=== PATIENT | female | born 1965 | race Caucasian/White ===

== ENCOUNTER 2018-07-08 13:11 | Inpatient (IN) | payer OTHER ==
[~2018-07-08] VITALS: Ht 162.6 cm; Wt 99.8 kg
[~2018-07-08 13:11] MED LIST: BENZONATATE100 MG PO; CYCLOBENZAPRINE10 M1 PO; KETOROLAC TROME10 M1 PO; PERCOCET 5-3251 EACH PO; ROBITUSSIN W/CO10 ML PO; VENTOLIN HFA18 GM INH; ZITHROMAX Z-PA250 M1 PO
[2018-07-08 14:08] LABS: ABSOLUTE BASOPHIL COUNT 0 /CUMM (0.0-0.2); ABSOLUTE EOSINOPHIL COUNT 0.3 /CUMM (0.0-0.7); ABSOLUTE GRANULOCYTE CT 5.9 /CUMM (1.4-6.5); ABSOLUTE LYMPH COUNT 2.7 /CUMM (1.2-3.4); ABSOLUTE MONOCYTE COUNT 0.6 /CUMM (0.10-0.60); BASOPHIL % 0.3 % (0.0-2.0); EOSINOPHIL % 2.7 % (0-5); GRANULOCYTE % 61.7 % (42.2-75.2); HEMATOCRIT 40.5 % (37-47); MEAN CORPUSCULAR HGB 28.2 PG (27.0-31.0); MEAN CORPUSCULAR HGB CONC 33.3 G/DL (33.0-37.0); MEAN CORPUSCULAR VOLUME 84.7 FL (81.0-99.0); MEAN PLATELET VOLUME 7.8 FL (7.4-10.4); PLATELET COUNT 295 /CUMM (130-400); RBC DISTRIBUTION WIDTH 13.7 % (11.5-14.5); RED BLOOD CELL CT 4.78 /CUMM (4.20-5.40); WHITE BLOOD CELL COUNT 9.5 /CUMM (4.8-10.8)
--- NOTE | 2018-07-08 14:19 | ED PSYCHIATRIC COMPLAINT ---
See Addendum History of Present Illness General Chief Complaint: Psychiatric Related Complaint Stated Complaint: SIB DR COVARRUBIAS, +SI, ANXIETY Source: patient, old records, friend Exam Limitations: no limitations Vital Signs & Intake/Output Vital Signs & Intake/Output Vital Signs Date Time Temp Pulse Resp B/P B/P Pulse O2 O2 Flow FiO2 Mean Ox Delivery Rate 07/08 2255 97.6 52 20 111/65 96 Room Air 07/08 1832 98.4 74 20 124/73 96 Room Air 07/08 1611 98.0 79 20 120/81 97 Room Air 07/08 1315 97.4 94 15 113/76 98 Room Air Room Air ED Intake and Output 07/09 0000 07/08 1200 Intake Total Output Total Balance Patient 230 lb Weight Weight Reported by Patient Measurement Method Allergies Coded Allergies: nitrofurantoin (Intermediate, HIVES 07/08/18) esomeprazole (From NEXIUM) (BEEFY TONGUE 07/08/18) omeprazole (From PRILOSEC) (ADVERSE REACTION 07/08/18) ramipril (COUGH 07/08/18) Reconcile Medications Albuterol Sulfate (Ventolin Hfa) 0.09 MG/Actuation CONG 1 INH INH DAILY ASTHMA (Reported) Aspirin (Aspirin*) 81 MG TAB.CHEW 1 TAB PO Q AFTERNOON HEART HEALTH (Reported ) Azithromycin (Zithromax Z-Jorje) 250 MG CAP 1 DP PO AD BRONCHTIIS 2 the first day followed by 1 for days 2-5 Benzonatate 100 MG SGL 1-2 CAP PO Q4 ASTHMA (Reported) Cholecalciferol (Vitamin D3) (Vitamin D) 2,000 UNIT CAPSULE 1 CAP PO DAILY SUPPLEMENT (Reported) Clonazepam 1 MG TABLET 1 TAB PO QPMP SLEEP (Reported) Cyclobenzaprine HCl 10 MG TABLET 1 TAB PO BID PRN MUSCLE RELAXOR DO NOT OPERATE MOTOR VEHICLES WITH THE MEDICATION Duloxetine HCl 60 MG CAPSULE. 1 CAP PO BID DEPRESSION (Reported) Famotidine 40 MG TABLET 0.5 TAB PO DAILY STOMACH (Reported) Hydroxyzine Pamoate 50 MG CAPSULE 2 CAP PO QHS SLEEP (Reported) Ketorolac Tromethamine 10 MG TABLET 1 TAB PO TID PRN PAIN RECEIVED IM IN ER Levothyroxine Sodium 137 MCG TABLET 1 TAB PO DAILY HYPOTHYROIDISM (Reported) Linaclotide (Linzess) 72 MCG CAPSULE 1 CAP PO DAILY BOWELS (Reported) Losartan Potassium 50 MG TABLET 1 TAB PO DAILY HYPERTENSION (Reported) Metoclopramide HCl (Reglan) 10 MG TABLET 1 TAB PO PRN PRN HEADACHE (Reported) 30 minutes before meals and bedtime Multivitamin (One Daily Multivitamin) 1 EACH TABLET 1 TAB PO DAILY SUPPLEMENT (Reported) Naproxen 500 MG TABLET 1 TAB PO PRN PRN HEADACHE (Reported) Nystatin 100,000 UNIT/GRAM POWDER 1 TOP PRN PRN RASH (Reported) Oxycodone HCl/Acetaminophen (Percocet 5-325 MG Tablet) 1 EACH TABLET 1-2 TAB PO Q6P PRN severe pain Oxycodone HCl/Acetaminophen (Percocet 5-325 MG Tablet) 5 MG-325 MG TABLET 1 TAB PO BID PRN PAIN DO NOT OPERATE MOTOR VEHICLES WITH MEDICATION Progesterone,Micronized (Progesterone) 100 MG CAPSULE 1 CAP PO QPM HORMONE REPLACEMENT (Reported) Robitussin AC (Guaifenesin-Codeine Syrup) 10 ML UDC 5 ML PO Q6 COUGH Rosuvastatin Calcium (Crestor) 5 MG TABLET 1 TAB PO Q AFTERNOON CHOLESTEROL ( Reported) Sumatriptan Succinate 100 MG TABLET 1 TAB PO AD HEADACHES (Reported) may repeat in 2 hours; do not exceed 200 mg in 24 hours Trazodone HCl 100 MG TABLET 2-3 TAB PO QPM SLEEP (Reported) Triage Note: PT SENT TO ED BY DR. COVARRUBIAS FOR +SI THOUGHTS AND INCREASED DEPRESSION RECENTLY. DENIES HI OR AUDITORY HALLUCINATIONS. PLAN TO DRIVE CAR INTO CONCRETE WALL. PT CALM AND COOPERATIVE. Triage Nurses Notes Reviewed? yes Onset: 3 months Duration: week(s):, constant, continues in ED, getting worse Timing: recent history Severity: severe Associated Symptoms: anxiety, impaired concentration, insomnia, suicidal ideation LMP (ages 10-50): post menopausal : No Patient currently breastfeeds: No HPI: 3 months prior to admission patient has become more anxious depressed and fearful of leaving home difficulty concentrating working insomnia anhedonia and suicidal ideation by driving her car into a wall. She also reports being fearful of leaving the home and being unable to work. She denies fever chills nausea vomiting diarrhea abdominal pain chest pain shortness breath headache dysuria rash bleeding homicidal ideation hallucination. (Pauline DIAZ,Alejandro) Past History Travel History Traveled to [place] past 21 day No Medical History Any Pertinent Medical History? see below for history Neurological: migraine EENT: NONE Cardiovascular: hypertension Respiratory: NONE Gastrointestinal: GALLBLADDER Hepatic: NONE Renal: NONE Musculoskeletal: NONE Psychiatric: DEPRESSION, ANXIETY Endocrine: HYPOTHYROID Isolation History: Standard Surgical History Surgical History: cholecystectomy, hernia repair-ventral Psychosocial History What is your primary language Bulgarian Tobacco Use: Current Daily Use Daily Tobacco Use Amount/Type: => 5 Cigarettes daily ETOH Use: denies use Illicit Drug Use: marijuana Family History Hx Contributory? No (Alejandro Carpenter MD) Review of Systems Review of Systems Constitutional: Reports: no symptoms. EENTM: Reports: no symptoms. Respiratory: Reports: no symptoms. Cardiovascular: Reports: no symptoms. GI: Reports: no symptoms. Genitourinary: Reports: no symptoms. Musculoskeletal: Reports: no symptoms. Skin: Reports: no symptoms. Neurological/Psychological: Reports: see HPI, anxiety, confusion, depressed, emotional problems. Hematologic/Endocrine: Reports: no symptoms. Immunologic/Allergic: Reports: no symptoms. All Other Systems: Reviewed and Negative (Alejandro Carpenter MD) Physical Exam Physical Exam General Appearance: well developed/nourished, alert, awake, anxious, severe distress, obese Head: atraumatic, normal appearance Eyes: Bilateral: normal appearance, PERRL, EOMI. Ears, Nose, Throat: normal pharynx, normal ENT inspection, hearing grossly normal, moist mucus membranes Neck: normal inspection, supple, full range of motion, no midline tenderness Respiratory: normal breath sounds, chest non-tender, no respiratory distress, quiet respiration, lungs clear Cardiovascular: regular rate/rhythm, normal peripheral pulses, norml femoral pulses equa Gastrointestinal: normal bowel sounds, soft, non-tender, no organomegaly Extremities: normal range of motion, no ligament instability Neurological/Psychiatric: no motor/sensory deficits, awake, agitated, alert, anxious, top waddy II-XII nml as tested, oriented x 3 Appearance/Memory/Insight: disheveled, impaired insight Behavoir/Eye Contact/Speech: cooperative, normal speech Thoughts/Hallucinations: no apparent hallucination Skin: intact, normal color, warm/dry SAD PERSONS SAD PERSONS Response Value Age <19 or >45 years? yes 1 Depression/Hopelessness? yes 2 Previous Attempts/Psych Care yes 1 Rational Thinking Loss? yes 2 Single//? yes 1 Social Support? has support 0 Stated Future Intent? yes 2 Total 9 SAD PERSONS Done? yes (Pauline DIAZ,Alejandro) Progress Differential Diagnosis: drug intoxication, drug overdose, drug withdrawal, electrolyte abnormality, hypoglycemia Plan of Care: Orders Procedure Date/time Status Regular Diet 07/08 D Active Continuous Observation Monitor 07/08 1730 Active ED CRISIS PSYCH CONSULT 07/08 1355 Active Continuous Observation Monitor 07/08 1330 Active URINE DRUG SCREEN FOR ER ONLY 07/08 133 Complete ETHANOL 07/08 133 Complete COMPREHENSIVE METABOLIC PANEL 07/08 133 Complete CBC WITHOUT DIFFERENTIAL 07/08 133 Complete Current Medications Sig/Mirna Start time Last Medication Dose Stop Time Status Admin Losartan Potassium 50 MG DAILY 07/09 900 UNVr (Cozaar) Multivitamins 1 TAB DAILY 07/09 900 UNVr Therapeutic (Theragran-M Vitamins Tabs) Levothyroxine Sodium 0.137 MG DAILY AC 07/09 07 AC (Synthroid) Clonazepam 1 MG AT BEDTIME PRN 07/08 2100 AC 07/08 (Klonopin 1MG Tab) 07/15 Duloxetine HCl 60 MG BID 07/08 2100 UNVr 07/08 (Cymbalta) 2016 Hydroxyzine HCl 100 MG QPM 07/08 2100 UNVr 07/08 (Atarax) 2015 Progesterone 100 MG AT BEDTIME 07/08 2100 AC (Prometrium) Trazodone HCl See Dose QPM 07/08 2100 UNVr 07/08 (Desyrel) Insts (1) 2015 Atorvastatin Calcium 20 MG 1700 07/08 1700 UNVr 07/08 (Lipitor) 1748 Non-Formulary 0 SEE ADMIN CRITERIA 07/08 1630 UNVr Medication (NON FORMULARY) Sumatriptan Succinate 100 MG DAILY NEEDED PRN 07/08 1630 AC (Imitrex Tab) Cyclobenzaprine HCl 10 MG BID PRN 07/08 1615 UNVr (Flexeril 10MG Tab) Dose Instructions: (1)Trazodone HCl (Desyrel): 2-3 TAB Laboratory Tests 07/08/18 1357: Serum Alcohol < 10.0 07/08/18 1357: Anion Gap 9, Estimated GFR > 60, BUN/Creatinine Ratio 15.6, Glucose 82, Calcium 9.1, Total Bilirubin 0.2, AST 28, ALT 45, Alkaline Phosphatase 70, Total Protein 7.3, Albumin 4.6, Globulin 2.7, Albumin/Globulin Ratio 1.7, CBC w Diff NO MAN DIFF REQ, RBC 4.78, MCV 84.7, MCH 28.2, MCHC 33.3, RDW 13.7, MPV 7.8, Gran % 61.7, Lymphocytes % 28.9, Monocytes % 6.4, Eosinophils % 2.7, Basophils % 0.3, Absolute Granulocytes 5.9, Absolute Lymphocytes 2.7, Absolute Monocytes 0.6, Absolute Eosinophils 0.3, Absolute Basophils 0, Urine Opiates Screen < 100, Methadone Screen 72, Barbiturate Screen < 60, Ur Phencyclidine Scrn < 6.00, Amphetamines Screen 127, U Benzodiazepines Scrn < 85, Urine Cocaine Screen < 50, Urine Cannabis Screen > 80.00 H Hand-Off Endorsed To: Yobani DIAZ,Anival Villanueva Endorsed Time: 1899 Pending: other (bed search) (Alejandro Carpenter MD) Departure Departure Disposition: STILL A PATIENT Condition: Stable Clinical Impression Primary Impression: Major depression Referrals: Philippe DIAZ,Brittany Marx (PCP/Family) Departure Forms: Customer Survey General Discharge Information (Alejandro Carpenter MD) Departure Comments pt to be signed out to dr. strong, 07.09.18, 7am. crises dispo pending. (Yobani DIAZ,Anival Villanueva)
[2018-07-08] MEDS ORDERED: LEVOTHYROXINE137 MCG PO (14:44)
[2018-07-08] MEDS ORDERED: LOSARTAN POTASS50 M1 PO (14:45)
[2018-07-08] MEDS ORDERED: DULOXETINE HCL60 MG PO (14:46)
[2018-07-08] MEDS ORDERED: PROGESTERONE100 M2 PO (14:47)
[2018-07-08] MEDS ORDERED: CRESTOR5 M1 PO (14:49)
[2018-07-08] MEDS ORDERED: TRAZODONE HCL100 M1 PO (14:50)
[2018-07-08] MEDS ORDERED: NYSTATIN15 G2 TOP (14:51)
[2018-07-08] MEDS ORDERED: HYDROXYZINE PAM50 M1 PO (14:51)
[2018-07-08] MEDS ORDERED: CLONAZEPAM1 M2 PO (14:52)
[2018-07-08] MEDS ORDERED: FAMOTIDINE40 M1 PO (14:53)
[2018-07-08] MEDS ORDERED: NAPROXEN500 M2 PO (14:54)
[2018-07-08] MEDS ORDERED: SUMATRIPTAN SU100 M1 PO (14:55)
[2018-07-08] MEDS ORDERED: REGLAN10 M1 PO (14:57)
[2018-07-08] MEDS ORDERED: ASPIRIN81 M4 PO (14:58)
[2018-07-08] MEDS ORDERED: ONE DAILY MULT1 EAC2 PO (15:01)
[2018-07-08] MEDS ORDERED: LINZESS72 MCG PO (15:01)
[2018-07-08] MEDS ORDERED: VITAMIN D2000 UNIT PO (15:01)
--- NOTE | 2018-07-08 15:25 | ED PSYCH CRISIS CONSULTATION ---
Crisis Consult Basic Assessment Date of Consult: 07/08/18 Responsible Person/Accompanied By: accompanied by her friends Insurance Authorization: Insurance #1: Insurance name: [employer] Phone number: Policy number: [id number] Group number: [id number] Authorization number: ED Provider: Patient's ED Provider: Alejandro Carpenter MD Primary Care Physician: Patient's PCP: Philippe DIAZ,Brittany Marx PCP's Phone Number: Current Psychiatrist: [facility] Chief Complaint: Psychiatric Related Complaint Patient's Quote: "I keep thinking about driving my car into concrete wall" Present Illness: Pt is a 53yo female who self presents to the ED requesting help for Anxiety, Depression, and SI with plan to drive herself into a concrete wall. Pt is a accompanied by her close friends Celine and Selvin. Celine is her roommate. Both are supportive and comfort pt as she explains what she has been going through as she is tearful. Pt reports that she has many medical issues and believes that hormones may be a big part of why she is feeling so depressed and anxious. Pt says that she has only part of a pituitary. Pt also says she felt really bad about herself when her Dr told her that she is a canidate for bariatric surgery. 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 Lately she hsa been agoraphobic and isolative. She has been afraid to go to work. she has not been able to attend family functions such as her grandson's birthday libertarian. "I went, but I could not stay. I left with out saying bye to anyone and that is not like me. I feel like I am loosing control. I don't trust people lately and I am usually a very loving person. I'm just so emotional." Pt reports that she has a similar situation about 10 years ,where her anxiety and Depression go so bad that she could nit function and she was psychiatrically Hospitalized at [facility]. Since then, she has been in out pt tx at [facility] in [place] for 10 years. She currently works with Luis Altamirano. Pt reports that he has increased her trazodone to 300mg because she has not been able to sleep. Pt requested that the [employer] be called to collaborate. Message left for the [employer] . Pt admits that less than a year ago she started smoking Marijuana before bed a few times a week to help with anxiety. UDS is positive for cannabis. Pt would like inpt psych tx as she expresses she is worried she may act on her SI. Case reviewed with Dr. Duarte of psychiatry who also recommends inpt psych tx. He recommended that pt discontinue the Reglan because it can cause SI. Dr. Carpenter and Nurse were informed of this. There are currently no inpt psych beds available in so pt will stay in the ED overnight. Pt agreeable. C-SSRS: Risk Factors: Suicidal thoughts, Hopelessness, Helplessness, Major Depressive Episode, Substance Use, Medical problem, Method of suicide available, unable to maintain safety, sexual abuse? (pt unsure), Protective Factors: Supportive Social Network Patient's Address: [address] [place] [address] Other Phone Number: Who Do You Live With? Other (see notes) (roommate) Family/Informants Interviewed: Roommate Mickie Sheets Allergies - Coded Allergies: nitrofurantoin (Intermediate, HIVES 07/08/18) esomeprazole (From NEXIUM) (BEEFY TONGUE 07/08/18) omeprazole (From PRILOSEC) (ADVERSE REACTION 07/08/18) ramipril (COUGH 07/08/18) Current Medications - Scheduled Medications Albuterol Sulfate (Ventolin Hfa) 0.09 MG/Actuation CONG 1 INH INH DAILY ASTHMA #18 (Reported) Entered as Reported by Laurie Jung on 08/17/14 1535 Aspirin (Aspirin*) 81 MG TAB.CHEW 1 TAB PO Q AFTERNOON HEART HEALTH (Reported ) Entered as Reported by Florence Recio on 07/08/18 1458 Azithromycin (Zithromax Z-Jorje) 250 MG CAP 1 DP PO AD BRONCHTIIS #1 DP Prescribed by Anny Webster on 08/17/14 Benzonatate 100 MG SGL 1-2 CAP PO Q4 ASTHMA #28 (Reported) Entered as Reported by Laurie Jung on 08/17/14 1535 Cholecalciferol (Vitamin D3) (Vitamin D) 2,000 UNIT CAPSULE 1 CAP PO DAILY SUPPLEMENT (Reported) Entered as Reported by Florence Recio on 07/08/18 1501 Clonazepam 1 MG TABLET 1 TAB PO QPMP SLEEP #30 (Reported) Entered as Reported by Florence Recio on 07/08/18 1452 Duloxetine HCl 60 MG CAPSULE.DR 1 CAP PO BID DEPRESSION #60 (Reported) Entered as Reported by Florence Recio on 07/08/18 1446 Famotidine 40 MG TABLET 0.5 TAB PO DAILY STOMACH #60 (Reported) Entered as Reported by Florence Recio on 07/08/18 1453 Hydroxyzine Pamoate 50 MG CAPSULE 2 CAP PO QHS SLEEP #60 (Reported) Entered as Reported by Florence Recio on 07/08/18 1451 Levothyroxine Sodium 137 MCG TABLET 1 TAB PO DAILY HYPOTHYROIDISM #90 ( Reported) Entered as Reported by Florence Recio on 07/08/18 1444 Linaclotide (Linzess) 72 MCG CAPSULE 1 CAP PO DAILY BOWELS (Reported) Entered as Reported by Florence Recio on 07/08/18 1501 Losartan Potassium 50 MG TABLET 1 TAB PO DAILY HYPERTENSION #30 (Reported) Entered as Reported by Florence Recio on 07/08/18 1445 Multivitamin (One Daily Multivitamin) 1 EACH TABLET 1 TAB PO DAILY SUPPLEMENT (Reported) Entered as Reported by Florence Recio on 07/08/18 1501 Progesterone,Micronized (Progesterone) 100 MG CAPSULE 1 CAP PO QPM HORMONE REPLACEMENT #90 (Reported) Entered as Reported by Florence Recio on 07/08/18 1447 Robitussin AC (Guaifenesin-Codeine Syrup) 10 ML UDC 5 ML PO Q6 COUGH #120 ML Prescribed by Anny Webster on 08/17/14 Rosuvastatin Calcium (Crestor) 5 MG TABLET 1 TAB PO Q AFTERNOON CHOLESTEROL # 90 (Reported) Entered as Reported by Florence Recio on 07/08/18 1449 Sumatriptan Succinate 100 MG TABLET 1 TAB PO AD HEADACHES #9 (Reported) Entered as Reported by Florence Recio on 07/08/18 1455 Trazodone HCl 100 MG TABLET 2-3 TAB PO QPM SLEEP #90 (Reported) Entered as Reported by Florence Recio on 07/08/18 1450 Scheduled PRN Medications Cyclobenzaprine HCl 10 MG TABLET 1 TAB PO BID PRN MUSCLE RELAXOR #14 TAB Prescribed by Adan Balderas on 07/25/17 Ketorolac Tromethamine 10 MG TABLET 1 TAB PO TID PRN PAIN #15 TAB Prescribed by Adan Balderas on 07/25/17 Metoclopramide HCl (Reglan) 10 MG TABLET 1 TAB PO PRN PRN HEADACHE #15 ( Reported) Entered as Reported by Florence Recio on 07/08/18 1457 Naproxen 500 MG TABLET 1 TAB PO PRN PRN HEADACHE #9 (Reported) Entered as Reported by Florence Recio on 07/08/18 1454 Nystatin 100,000 UNIT/GRAM POWDER 1 TOP PRN PRN RASH #60 (Reported) Entered as Reported by Florence Recio on 07/08/18 1451 Oxycodone HCl/Acetaminophen (Percocet 5-325 MG Tablet) 1 EACH TABLET 1-2 TAB PO Q6P PRN severe pain #2 TAB Prescribed by Alejandro Carpenter MD on 03/29/16 Oxycodone HCl/Acetaminophen (Percocet 5-325 MG Tablet) 5 MG-325 MG TABLET 1 TAB PO BID PRN PAIN #8 TAB Prescribed by Adan Balderas on 07/25/17 Laboratory Results: Laboratory Tests 07/08/18 1357: Serum Alcohol < 10.0 07/08/18 1357: Anion Gap 9, Estimated GFR > 60, BUN/Creatinine Ratio 15.6, Glucose 82, Calcium 9.1, Total Bilirubin 0.2, AST 28, ALT 45, Alkaline Phosphatase 70, Total Protein 7.3, Albumin 4.6, Globulin 2.7, Albumin/Globulin Ratio 1.7, CBC w Diff NO MAN DIFF REQ, RBC 4.78, MCV 84.7, MCH 28.2, MCHC 33.3, RDW 13.7, MPV 7.8, Gran % 61.7, Lymphocytes % 28.9, Monocytes % 6.4, Eosinophils % 2.7, Basophils % 0.3, Absolute Granulocytes 5.9, Absolute Lymphocytes 2.7, Absolute Monocytes 0.6, Absolute Eosinophils 0.3, Absolute Basophils 0, Urine Opiates Screen < 100, Methadone Screen 72, Barbiturate Screen < 60, Ur Phencyclidine Scrn < 6.00, Amphetamines Screen 127, U Benzodiazepines Scrn < 85, Urine Cocaine Screen < 50, Urine Cannabis Screen > 80.00 H Past History Past Medical History Neurological: migraine EENT: NONE Cardiovascular: hypertension Respiratory: NONE Gastrointestinal: GALLBLADDER Hepatic: NONE Renal: NONE Musculoskeletal: NONE Psychiatric: DEPRESSION, ANXIETY Endocrine: HYPOTHYROID Past Surgical History Surgical History: cholecystectomy, hernia repair-ventral Psychosocial History Strengths/Capabilities: motivated for tx, supportive friends, 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 Able to articulate needs Physical Limitations (Interventions): none reported Psychiatric Treatment History Psych Treatment Psychiatric Treatment Yes Inpatient Treatment Yes Outpatient Treatment Yes Location of Treatment [facility] Reason for Treatment Depression, Anxiety Dates of Treatment past 10 years to present Response to Treatment variable Diagnosis by History: Depression, Anxiety Substance Use/Abuse History Drug Use/Abuse Substances Used/Abused Yes Substance Used/Abused Marijuana First Use lass than 1 year ago Last Used this week How much used/taken unknown How often few times a week For how long less than 1 year Route of use smoke Substance Abuse Treatment Substance Abuse Treatment Past Substance Abuse TX No Inpatient Treatment No Outpatient Treatment No Current Mental Status Mental Status Orientation: Person, Place, Situation Affect: Anxious, Depressed, Hopeless, Sad Speech: WNL Neuro-vegetative: Anhedonia, Concentration Poor, Energy Decreased, Helpless, Loss of Interest, Sleep Disturbance Appearance Appearance- Dress/Hygiene: well groomed, tearful Behaviors Thought Process: WNL Thought Content: WNL Memory: WNL Insight: WNL SI/HI Risk Assessment Past Suicidal Ideation/Attempts No Current Suicidal Ideation/Att Yes Past Homicidal Ideation/Att: No Current Homicidal Ideation/Attempts No Degree of Intent: Plan Danger To: Self Risk Factors: high anxiety/distress, SA/MH hospitalized, substance abuse Lethality Ratin PTSD Checklist PTSD Done? patient declined ED Management Sitter: Yes Restraints: No DSM5/PS Stressors/Medical Prob Diagnosis' (DSM 5, Stressors, Medical): F33.2 MDD rec severe w/o psychosis F41.1 Gen Anxiety F12.20 Cannabis use d/o Current GAF: 25 Departure Disposition Psych Medical Clearance Date: 07/08/18 Medically Cleared at: 1445 Time Started: 1445 Time Ended: 1545 Psychiatrist Consulted: Anival Duarte MD Date Disposition Established: 07/08/18 Time Disposition Established: 2901 Plan for Disposition - Modality: Bed Search Facility: To Be Determined Rationale for Disposition: safety and stabilization Type of IP Admission: Voluntary Referrals Philippe DIAZ,Brittany Marx (PCP/Family)
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
--- NOTE | 2018-07-09 13:17 | CT SCAN REPORT ---
EXAMINATION: CT ABDOMEN AND PELVIS WITHOUT CONTRAST CLINICAL INFORMATION: Right lower quadrant pain. Rule out evidence of appendicitis. COMPARISON: None. TECHNIQUE: Multidetector volumetric imaging was performed from the superior aspect of the liver through the pubic symphysis. Sagittal and coronal reformatted images were obtained on the technologist workstation. DLP: 897.13 mGy-cm. FINDINGS: LUNG BASES: The visualized lung bases are unremarkable. LIVER, GALLBLADDER, AND BILIARY TREE: The liver is normal in size and shape, and diffusely lower in attenuation compared to the spleen, consistent with hepatic steatosis. Patchy areas of relative hyper density is seen in a geographic distribution along the falciform ligament and gallbladder fossa, consistent with areas of focal fatty sparing. No focal hepatic lesion on noncontrast imaging. No biliary ductal dilatation is present. The gallbladder is surgically absent with several nighat seen in the gallbladder fossa. No focal fluid collection seen. PANCREAS: Mild fatty infiltration in the pancreatic head. SPLEEN: Unremarkable. Small 0.7 cm accessory splenule seen along the anterior inferior margin of the spleen. ADRENAL GLANDS: Unremarkable on noncontrast imaging. KIDNEYS AND URETERS: The kidneys are normal in size, shape, and attenuation. No hydronephrosis, hydroureter, or calculi seen. No perinephric stranding. Several calcifications are seen in the cul-de-sac, posterior to the bladder and around the uterus/vagina, consistent with multiple phleboliths. BLADDER: Suboptimally assessed due to underdistention, but grossly unremarkable. PELVIC VISCERA: Unremarkable. GASTROINTESTINAL TRACT: The small and large bowel are decompressed and unremarkable. Incidentally noted is fatty infiltration of the ileocecal valve. The appendix is normal. No focal inflammatory process in the right lower quadrant. ABDOMINAL WALL: Diastases of the rectus abdominis muscles is seen with moderate size midline umbilical hernia. No evidence of acute inflammatory changes. The hernia sac measures approximately 4.4 x 2.4 x 4.5 cm and contains omental fat only. LYMPH NODES, VASCULAR: Unremarkable. OSSEOUS STRUCTURES: The patient is status post anterior lumbar spine fusion at L4-5 and L5-S1 with partial bony fusion also noted. Mild degenerative disc disease is seen at L1-2 with disc space narrowing, vertebral endplate spurring, minimal cystic changes and minimal grade 1 retrolisthesis of L1 on L2. Minimal spurring also seen in the lower thoracic spine. Osteopenia noted. IMPRESSION: 1. The appendix is normal. No evidence of acute appendicitis. 2. Hepatic steatosis with patchy areas of fatty sparing. 3. Status post cholecystectomy with no evidence of biliary dilatation. 4. Mild fatty infiltration of the pancreatic head. 5. Moderate fat-containing umbilical hernia.
[2018-07-09 16:35] VITALS: BP 130/77
[2018-07-09 19:52] VITALS: BP 118/75
[2018-07-10 07:44] VITALS: BP 128/67
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
--- NOTE | 2018-07-10 13:12 | History & Physical ---
General Information and HPI MD Statement: I have seen and personally examined NAOMI DUPONT and documented this H&P. The patient is a 53 year old F who presented with a patient stated chief complaint of "I keep thinking about driving my car into concrete wall". Source of Information: patient, friend Exam Limitations: unable to give history History of Present Illness: 53-year-old white female was sent to the emergency department by Dr. Chamorro for positive suicidal idea thoughts and increased depression recently, had a plan to drive her car into a concrete wall. The symptoms have been present for at least 3 months with increased depression decreased concentration and insomnia anhedonia and suicidal ideation for all those reasons she is admitted for evaluation and treatment. Allergies/Medications Allergies: Coded Allergies: nitrofurantoin (Intermediate, HIVES 07/08/18) esomeprazole (From NEXIUM) (BEEFY TONGUE 07/08/18) omeprazole (From PRILOSEC) (ADVERSE REACTION 07/08/18) ramipril (COUGH 07/08/18) Home Med list Albuterol Sulfate (Ventolin Hfa) 0.09 MG/Actuation CONG 1 INH INH DAILY ASTHMA (Reported) Aspirin (Aspirin*) 81 MG TAB.CHEW 1 TAB PO Q AFTERNOON HEART HEALTH (Reported ) Azithromycin (Zithromax Z-Jorje) 250 MG CAP 1 DP PO AD BRONCHTIIS 2 the first day followed by 1 for days 2-5 Benzonatate 100 MG SGL 1-2 CAP PO Q4 ASTHMA (Reported) Cholecalciferol (Vitamin D3) (Vitamin D) 2,000 UNIT CAPSULE 1 CAP PO DAILY SUPPLEMENT (Reported) Clonazepam 1 MG TABLET 1 TAB PO QPMP SLEEP (Reported) Cyclobenzaprine HCl 10 MG TABLET 1 TAB PO BID PRN MUSCLE RELAXOR DO NOT OPERATE MOTOR VEHICLES WITH THE MEDICATION Duloxetine HCl 60 MG CAPSULE.DR 1 CAP PO BID DEPRESSION (Reported) Famotidine 40 MG TABLET 0.5 TAB PO DAILY STOMACH (Reported) Hydroxyzine Pamoate 50 MG CAPSULE 2 CAP PO QHS SLEEP (Reported) Ketorolac Tromethamine 10 MG TABLET 1 TAB PO TID PRN PAIN RECEIVED IM IN ER Levothyroxine Sodium 137 MCG TABLET 1 TAB PO DAILY HYPOTHYROIDISM (Reported) Linaclotide (Linzess) 72 MCG CAPSULE 1 CAP PO DAILY BOWELS (Reported) Losartan Potassium 50 MG TABLET 1 TAB PO DAILY HYPERTENSION (Reported) Metoclopramide HCl (Reglan) 10 MG TABLET 1 TAB PO PRN PRN HEADACHE (Reported) 30 minutes before meals and bedtime Multivitamin (One Daily Multivitamin) 1 EACH TABLET 1 TAB PO DAILY SUPPLEMENT (Reported) Naproxen 500 MG TABLET 1 TAB PO PRN PRN HEADACHE (Reported) Nystatin 100,000 UNIT/GRAM POWDER 1 TOP PRN PRN RASH (Reported) Oxycodone HCl/Acetaminophen (Percocet 5-325 MG Tablet) 1 EACH TABLET 1-2 TAB PO Q6P PRN severe pain Oxycodone HCl/Acetaminophen (Percocet 5-325 MG Tablet) 5 MG-325 MG TABLET 1 TAB PO BID PRN PAIN DO NOT OPERATE MOTOR VEHICLES WITH MEDICATION Progesterone,Micronized (Progesterone) 100 MG CAPSULE 1 CAP PO QPM HORMONE REPLACEMENT (Reported) Robitussin AC (Guaifenesin-Codeine Syrup) 10 ML UDC 5 ML PO Q6 COUGH Rosuvastatin Calcium (Crestor) 5 MG TABLET 1 TAB PO Q AFTERNOON CHOLESTEROL ( Reported) Sumatriptan Succinate 100 MG TABLET 1 TAB PO AD HEADACHES (Reported) may repeat in 2 hours; do not exceed 200 mg in 24 hours Trazodone HCl 100 MG TABLET 2-3 TAB PO QPM SLEEP (Reported) Compliance With Home Meds: UNKNOWN Past History Travel History Traveled to [place] past 21 day No Medical History Neurological: migraine EENT: NONE Cardiovascular: hypertension Respiratory: NONE, CHRONIC BRONCHITIS Gastrointestinal: GALLBLADDER ABD HERNIA REPAIR (UMBILI Hepatic: NONE, FATTY LIVER Renal: NONE Musculoskeletal: NONE, BACK SURGERY LISTED Psychiatric: DEPRESSION, ANXIETY Endocrine: HYPOTHYROID Cancer(s): basal cell carcinoma 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 Exam & Diagnostic Data Last 24 Hrs of Vital Signs/I&O Vital Signs Date Time Temp Pulse Resp B/P B/P Pulse O2 O2 Flow FiO2 Mean Ox Delivery Rate 07/10 0801 87 128/67 07/10 0744 98.0 87 128/67 07/09 1952 98.6 66 118/75 07/09 1635 98.8 71 130/77 07/09 1547 98.0 62 18 112/62 95 Room Air Intake & Output 07/10 1600 07/10 0800 07/10 0000 Intake Total Output Total Balance Patient 220 lb Weight Physical Exam General Appearance Alert, Oriented X3, Cooperative, No Acute Distress Skin No Rashes, No Breakdown HEENT Atraumatic, PERRLA, EOMI Neck Supple, No JVD, No thryomegaly, +2 Carotid Pulse wo Bruit Lymphatic Axillary nl, Cervical nl Cardiovascular Regular Rate, No Murmurs Lungs Clear to Auscultation, Normal Air Movement Abdomen Soft, No Tenderness, No Hepatospenomegaly Neurological Exam Findings: Normal Gait, Normal Speech, Strength at 5/5 X4 Ext, Normal Tone, Sensation Intact, Cranial Nerves 3-12 NL, Reflexes 2+ Cranial Nerves II through XII: intact. Extremities No Cyanosis, No Edema, Normal Pulses Vascular Normal Pulses, Pulses Symmetrical Last 24 Hrs of Labs/Renaldo: Laboratory Tests 07/08/18 1357: Serum Alcohol < 10.0 07/08/18 135: Anion Gap 9, Estimated GFR > 60, BUN/Creatinine Ratio 15.6, Glucose 82, Calcium 9.1, Total Bilirubin 0.2, AST 28, ALT 45, Alkaline Phosphatase 70, Total Protein 7.3, Albumin 4.6, Globulin 2.7, Albumin/Globulin Ratio 1.7, CBC w Diff NO MAN DIFF REQ, RBC 4.78, MCV 84.7, MCH 28.2, MCHC 33.3, RDW 13.7, MPV 7.8, Gran % 61.7, Lymphocytes % 28.9, Monocytes % 6.4, Eosinophils % 2.7, Basophils % 0.3, Absolute Granulocytes 5.9, Absolute Lymphocytes 2.7, Absolute Monocytes 0.6, Absolute Eosinophils 0.3, Absolute Basophils 0, Urine Opiates Screen < 100, Methadone Screen 72, Barbiturate Screen < 60, Ur Phencyclidine Scrn < 6.00, Amphetamines Screen 127, U Benzodiazepines Scrn < 85, Urine Cocaine Screen < 50, Urine Cannabis Screen > 80.00 H Assessment/Plan As Ranked By This Provider Problem List: 1. Major depression Miscellaneous Miscellaneous Documentation Attending Case Discussed With: Naomi Velazquez MD Primary Care Physician: Brittany Paez MD, I. Patient sees these Specialists psych. Level of Patient Care: [facility] Consults Needed: Consulting Specialty: Psychiatry Consulting Physician: dr. Duarte Reason for Consult: SI depression. Attending MD Review Statement Attending Statement Attending MD Statement: examined this patient
--- NOTE | 2018-07-10 16:53 | SOCIAL WORKER PROG NOTE PSYCH ---
Social Work Progress Note Progress Note This chief underwriter met with patient. She reported that her life had become "overwhelming. I wanted to check out and I didn't want to so I came here." She discussed feeling very angry, sad, confused and "I can't process a thought." She identified seeing multiple specialists due to not feeling well medically as her primary trigger. Patient stated that she had been seeing Dr. Pringle, who referred her to Luis Altamirano APRN to add therapy to the medication management. She stated that Luis Altamirano was "pushing [place]" and she did not feel that there was enough focus on therapy. Patient reported MJ use, "almost daily", 1-2 hits and at times up to a joint. She identified this use to manage her anxiety, however, no longer finds it helpful. She reported "rare" alcohol use and was unable to provide a pattern/ amount of use. Patient reported SI - "I'm having thoughts of escaping," though denied any plan. She denied HI/hallucinations. She is agreeable to an IOP referral. She is also agreeable toa family meeting with friends and would like to discuss this with them before this chief underwriter schedules the meeting.
[2018-07-10 19:33] VITALS: BP 124/78
[2018-07-11 07:40] VITALS: BP 116/77
--- NOTE | 2018-07-11 11:57 | [facility] PROGRESS NOTE PSYCH ---
Psych (Inpt) Progress Note Progress Note The patient's progress, treatment plan, and aftercare plans were discussed in the treatment team meeting this morning. Team members included: LCSWs, RNs, OTR/ L, Activities Therapist, and Psychiatrist. Vital Signs Date Time Temp Pulse B/P 07/11 0803 65 116/77 07/11 0740 97.1 65 Mental status examination: The patient describes depressive symptoms, significant anxiety symptoms including agoraphobia and social phobia The patient was appropriately dressed and appropriately groomed, she showed no abnormalities in her behavior and no bizarreness. She showed good eye contact. Speech was normal, not pressured, not slurred. She was coherent without any evidence of thought disorder There were no delusions during the interview. She reported that she was feeling overwhelmed and hopeless and thinking of suicide yesterday. Denies any thoughts of suicide today. She denied hallucinations. She showed reasonable attention and concentration, no difficulties with attention with information processing, no evidence of short-term memory impairment. Assessment: 53-year-old female who self presents to the ED requesting help for Anxiety, Depression, and SI with plan to drive herself into a concrete wall. Pt reports that she has many medical issues and believes that hormones may be a big part of why she is feeling so depressed and anxious. Pt says that she has only part of a pituitary. 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 Lately she has been agoraphobic and isolative. She has been afraid to go to work. she has not been able to attend family functions such as her grandson's birthday democrat. "I went, but I could not stay. I left with out saying bye to anyone and that is not like me. I feel like I am loosing control. I don't trust people lately and I am usually a very loving person. I'm just so emotional." Pt reports that she has a similar situation about 10 years ,where her anxiety and Depression go so bad that she could nit function and she was psychiatrically Hospitalized at [facility]. Since then, she has been in out pt tx at [facility] in [place] for 10 years. She currently works with Luis Altamirano. Pt reports that he has increased her trazodone to 300mg because she has not been able to sleep. Pt admits that less than a year ago she started smoking Marijuana before bed a few times a week to help with anxiety. UDS is positive for cannabis. Pt would like inpt psych tx as she expresses she is worried she may act on her SI. Diagnostic impression: Major Depressive Disorder Generalized Anxiety Disorder Treatment plan update: Add as needed's of Klonopin 1 mg every 6 hours as needed for anxiety Increase as needed doses of gabapentin to 900 mg as needed every 4 hours for anxiety to be used first and then if that does not work me use the as needed Klonopin (maximum 4 doses in 24 hours) Increase hydroxyzine back to 100 mg at bedtime Continue Cymbalta as it is: 60 mg twice daily Continue all other medications unchanged.
--- NOTE | 2018-07-11 18:11 | SOCIAL WORKER PROG NOTE PSYCH ---
Social Work Progress Note Progress Note This engineering writer met with patient. She described her mood as "I had one episode of panic and fear" triggered by knowing staff on [facility]. She discussed feeling shame and embarrassment about someone she knows knowing that she is here. She shared how she managed this by meeting with the staff member and Tayler Esparza, which she identified as helpful. Patient reported passive SI. She stated "I have a fleeting thought of trying to sneak out [of [facility]] and drive my car into a concrete wall." Aggie Cristian RN was informed of this. Patient is interested in [facility] and would like a family meeting with her friends, Mj and Selvin. This engineering writer spoke with Mj and a meeting has been scheduled for 07/12/18 at 11am. Mj has agreed to inform Selvin of this meeting. 4:20pm This engineering writer left for concurrent review requesting continued authorization for inpatient stay for Jim Angeles at [phone] ext [phone].
[2018-07-11 19:52] VITALS: BP 119/82
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
[2018-07-12 07:45] VITALS: BP 132/84
--- NOTE | 2018-07-12 08:22 | [facility] S[facility]TH PROGRESS NOTE PSYCH ---
Psych (Inpt) Progress Note Progress Note The patient's progress, treatment plan, and aftercare plans were discussed in the treatment team meeting this morning. Team members included: LCSWs, RNs, OTR/ L, Activities Therapist, and Psychiatrist. Vital Signs: Date Time Temp Pulse Resp B/P B/P Pulse O2 07/12 0801 97.9 76 18 132/84 07/12 0745 97.9 76 132/84 07/11 1952 97.6 67 119/82 Mental status: Jerri reported what seemed much more anxiety than depression. Her account of symptoms (over the past year) suggested a combination of illness anxiety, agoraphobia, social phobia, and generalized anxiety symptoms. The patient reported that she has been feeling irritable and easily angered. She showed good eye contact, speech was normal, not pressured, not slurred. She was kwxxbegb-dnz-vjn-most-part but had some circumstantial/overdetailed speech- thought pocess, perseveration, obsessiveness, and ruminations. There were no specific delusions during the interview. She reported that she is feeling overwhelmed still but no longer feeling hopeless and no longer thinking of suicide. Today would be her second day without thoughts of suicide. She denied hallucinations. I reviewed her executive and cognitive symptoms over the past few months and she reported difficulties with attention, concentration, and short-term memory (she was taken off Topamx for that reason) Assessment: Jerri is a 53-year-old white female who was admitted to [facility] because of thinking about driving car into a concrete wall. Pt reports that she has many medical issues and believes that hormones may be a big part of why she is feeling so depressed and anxious. Pt says that she has only part of a pituitary (trans-nasal resection 10 years earlier). Pt reports that she has a similar situation about 10 years. She was psychiatrically Hospitalized at [facility] 10 years earlier. Since then, she has been in out pt tx at [facility] in [place] for 10 years. Pt admits that less than a year ago she started smoking Marijuana before bed a few times a week to help with anxiety. Diagnostic impression: Major Depressive Disorder Generalized Anxiety Disorder Mild neuro-cognitive disorder Treatment plan update: I had in the long discussion with Jerri about her past psychopharmacological interventions and current options. We discussed the advantages and disadvantages of medications and switching medications versus augmenting her Cymbalta. She seems to understand basics of the discussion. We agreed on the following pharmacological plan: 1) Reduce Cymbalta to 60 mg AM + 30 mg PM 2) Reduce Klonopin to 0.5 mg every 6 hours as needed for anxiety. 3) Start Sertraline 50 mg daily gabapentin to 900 mg as needed every 4 hours (max 4 doses /day) for anxiety to be used first and then if that does not work me use the as needed Klonopin hydroxyzine 100 mg at bedtime Continue all other medications unchanged.
--- NOTE | 2018-07-12 17:36 | SOCIAL WORKER PROG NOTE PSYCH ---
See Addendum Social Work Progress Note Progress Note This property underwriter met with patient. She stated that her friends were not available for a family meeting today and was agreeable to this property underwriter contacting Mj ( [phone]) to reschedule. Mj accepted the call and was unsure as to when she would be available to reschedule. She was provided with this property underwriter's call back number and agreed to call with available times. Patient described her mood as "I'm very nervous." She discussed feeling triggered by the behavior of some other patients on the unit. We discussed strategies to manage her anxiety, which included speaking with staff. Patient denied SI/HI/hallucinations, and reported occassional "fleeting thoughts to go out the door." Patient discussed feeling "scared of not being better." We discussed ways in which she can support her mental health and she identified continued interest in [facility]. In addition, patient stated that she may consider individual therapy and would inform this property underwriter (if still admitted to [facility]) or her IOP clinician should she wish to pursue this type of care.
[2018-07-12 20:05] VITALS: BP 137/88
[2018-07-13 07:38] VITALS: BP 129/77
--- NOTE | 2018-07-13 09:13 | CP S[facility]TH PROGRESS NOTE PSYCH ---
Psych (Inpt) Progress Note Progress Note Jerri is a 53-year-old white female who was admitted to [facility] because of thinking about driving car into a concrete wall. Pt reports that she has many medical issues and believes that hormones may be a big part of why she is feeling so depressed and anxious. Pt says that she has only part of a pituitary (trans-nasal resection 10 years earlier). Pt reports that she has a similar situation about 10 years. She was psychiatrically Hospitalized at [facility] 10 years earlier. Since then, she has been in out pt tx at [facility] for 10 years. Diagnostic impression: Major Depressive Disorder Generalized Anxiety Disorder (a combination of illness anxiety, agoraphobia, social phobia, and generalized anxiety symptoms. Mild neuro-cognitive disorder The patient's progress, treatment plan, and aftercare plans were discussed in the treatment team meeting this morning. Team members included: LCSWs, RNs, OTR/ L, Activities Therapist, and Psychiatrist. Vital Signs: Date Time Temp Pulse B/P B/P 07/13 0738 97.1 67 129/77 07/12 2005 98.4 68 137/88 Mental status: Jerir was alert and oriented. She reported some anxiety, much less depression. The patient reported that she has been feeling less irritable today and less angry. She showed good eye contact, speech was normal, not pressured, not slurred. She was dxyzmurx-qrr-fta-most-part but had some circumstantial/overdetailed speech, perseveration, obsessiveness. There were no specific delusions during the interview. She reported that she no longer feeling hopeless and no longer thinking of suicide. Today was her 3rd day without thoughts of suicide. She denied hallucinations. difficulties with attention, concentration, reported short-term memory difficulties recently (most likely anticholinergic side effects as she was on 300 mg Trazodone and 100 mg hydroxyzine and Klonopin ( before coming to inpatient. Treatment plan update: I had in the long discussion with Jerri about her past psychopharmacological interventions and current options. We discussed the advantages and disadvantages of medications. She seems to understand the information presented. We agreed on the following pharmacological plan: 1) Reduce Gabapentin 900 mg as needed every 4 hours to a maximum of 3 doses /day for anxiety 2) Change PRN Klonopin at bedtime to regular schedule 3) Reduce Trazodone to 100 mg at bedtime 4) Klonopin 0.5 mg every 6 hours as needed for anxiety. Continue Cymbalta 60 mg AM + 30 mg p.m. (reduced from 60 mg BID yesterday) Continue Sertraline 50 mg daily (just started this morning) hydroxyzine 100 mg at bedtime Continue all other medications unchanged.
--- NOTE | 2018-07-13 16:48 | SOCIAL WORKER PROG NOTE PSYCH ---
Teresa Harry 07/13/18 1645: Social Work Progress Note Progress Note Psychiatric Community Health Worker Note Scheduled [facility] IOP intake appt through Patricia for the pt for Monday, July 16 at 1:15pm Teresa Harry (Tish) Psychiatric Community Health Worker
--- NOTE | 2018-07-13 17:05 | SOCIAL WORKER PROG NOTE PSYCH ---
Social Work Progress Note Progress Note This quality analyst/technical writer met with patient. We discussed a possible discharge for Monday, , to which the patient stated that she did not feel that she would be ready for discharge due to medication changes. She was agreeable to considering the possibility. Patient maintains interested in [facility] and an intake will be scheduled. She was informed that this quality analyst/technical writer had been unable to reschedule the family meeting and patient stated that she would speak with one or both friends about this over the weekend. Patient shared that she had a positive/helpful conversation with a nursing technician today in which a coping strategy was learned. She requested additional coping strategies and this quality analyst/technical writer shared the soothe with the five senses exercise. Patient appeared to be quite interested in this and will work on identifying multiple soothing techniques for the five senses this weekend. Furthermore, she stated that she would look forward to creating a box of soothing techniques when she returns home. She also identified coloring as a coping skill that she has found helpful here on the unit. Patient reported that she "slept great" last night. She denied SI/HI/ hallucinations.
--- NOTE | 2018-07-13 18:24 | Cons- OBGYN ---
General Information and HPI Consulting Request Date of Consult: 07/12/18 Requested By: Kory Garza MD Reason for Consult: vulvar sore Source of Information: patient, old records, hospital record Exam Limitations: [employer] SHE[employer] SUPERVISOR exam table, stirrups and light not available History of Present Illness: I was asked to see Ms. Lorenzo during her hospitalization for depression, for a sore spot on her vulva and for an itchy rash under her breasts and in her groins. Prior to her admission she was treated by her private [employer] SHE[employer] SUPERVISOR for a vaginal infection by Group B Strep with a week of oral PCN. She finished a course of OTC vaginal antifungal (Monistat) and was using a powder form of Nystatin for the fungal rashes under her breasts and in her groins, which was helping, but she left the powder at home and in the hospital her rash has worsened. Allergies/Medications Allergies: Coded Allergies: nitrofurantoin (Intermediate, HIVES 07/08/18) esomeprazole (From NEXIUM) (BEEFY TONGUE 07/08/18) omeprazole (From PRILOSEC) (ADVERSE REACTION 07/08/18) ramipril (COUGH 07/08/18) Home Med List: Albuterol Sulfate (Ventolin Hfa) 0.09 MG/Actuation CONG 1 INH INH DAILY ASTHMA (Reported) Aspirin (Aspirin*) 81 MG TAB.CHEW 1 TAB PO Q AFTERNOON HEART HEALTH (Reported ) Azithromycin (Zithromax Z-Jorje) 250 MG CAP 1 DP PO AD BRONCHTIIS 2 the first day followed by 1 for days 2-5 Benzonatate 100 MG SGL 1-2 CAP PO Q4 ASTHMA (Reported) Cholecalciferol (Vitamin D3) (Vitamin D) 2,000 UNIT CAPSULE 1 CAP PO DAILY SUPPLEMENT (Reported) Clonazepam 1 MG TABLET 1 TAB PO QPMP SLEEP (Reported) Cyclobenzaprine HCl 10 MG TABLET 1 TAB PO BID PRN MUSCLE RELAXOR DO NOT OPERATE MOTOR VEHICLES WITH THE MEDICATION Duloxetine HCl 60 MG CAPSULE.DR 1 CAP PO BID DEPRESSION (Reported) Famotidine 40 MG TABLET 0.5 TAB PO DAILY STOMACH (Reported) Hydroxyzine Pamoate 50 MG CAPSULE 2 CAP PO QHS SLEEP (Reported) Ketorolac Tromethamine 10 MG TABLET 1 TAB PO TID PRN PAIN RECEIVED IM IN ER Levothyroxine Sodium 137 MCG TABLET 1 TAB PO DAILY HYPOTHYROIDISM (Reported) Linaclotide (Linzess) 72 MCG CAPSULE 1 CAP PO DAILY BOWELS (Reported) Losartan Potassium 50 MG TABLET 1 TAB PO DAILY HYPERTENSION (Reported) Metoclopramide HCl (Reglan) 10 MG TABLET 1 TAB PO PRN PRN HEADACHE (Reported) 30 minutes before meals and bedtime Multivitamin (One Daily Multivitamin) 1 EACH TABLET 1 TAB PO DAILY SUPPLEMENT (Reported) Naproxen 500 MG TABLET 1 TAB PO PRN PRN HEADACHE (Reported) Nystatin 100,000 UNIT/GRAM POWDER 1 TOP PRN PRN RASH (Reported) Oxycodone HCl/Acetaminophen (Percocet 5-325 MG Tablet) 1 EACH TABLET 1-2 TAB PO Q6P PRN severe pain Oxycodone HCl/Acetaminophen (Percocet 5-325 MG Tablet) 5 MG-325 MG TABLET 1 TAB PO BID PRN PAIN DO NOT OPERATE MOTOR VEHICLES WITH MEDICATION Progesterone,Micronized (Progesterone) 100 MG CAPSULE 1 CAP PO QPM HORMONE REPLACEMENT (Reported) Robitussin AC (Guaifenesin-Codeine Syrup) 10 ML UDC 5 ML PO Q6 COUGH Rosuvastatin Calcium (Crestor) 5 MG TABLET 1 TAB PO Q AFTERNOON CHOLESTEROL ( Reported) Sumatriptan Succinate 100 MG TABLET 1 TAB PO AD HEADACHES (Reported) may repeat in 2 hours; do not exceed 200 mg in 24 hours Trazodone HCl 100 MG TABLET 2-3 TAB PO QPM SLEEP (Reported) Past History Medical History Blood Transfusion Hx: No Neurological: NONE (brain surgery, pituitary hypop), migraine EENT: NONE Cardiovascular: hypertension, hyperlipidemia Respiratory: NONE, CHRONIC BRONCHITIS Gastrointestinal: irritable bowel syndrome, GALLBLADDER ABD HERNIA REPAIR ( UMBILI pain in lower abdomen and pelvis Hepatic: NONE, FATTY LIVER Renal: NONE Musculoskeletal: NONE, BACK SURGERY LISTED Psychiatric: anxiety, depression, DEPRESSION, ANXIETY Endocrine: Gaby's thyroiditis, hypopituitarism, hypothyroidism, obesity, HYPOTHYROID Blood Disorders: NONE Cancer(s): basal cell carcinoma [employer] SHE[employer] SUPERVISOR/Reproductive: fibroid, HPV (perimenopause) Surgical History Pertinent Surgical History: cholecystectomy, hernia repair-ventral Psychosocial History Where Do You Live? Home ETOH Use: denies use Illicit Drug Use: marijuana Employment History Employment: Employed Profession/Employer: [employer] Assessment/Plan Consult Acknowledgment - Thank you for your consult request.
[2018-07-13 19:53] VITALS: BP 129/79
[2018-07-14 07:31] VITALS: BP 137/53
--- NOTE | 2018-07-14 16:45 | CP SOUTH PROGRESS NOTE PSYCH ---
Psych (Inpt) Progress Note Progress Note Progress Note: Jerri is a 53-year-old white female who was admitted to [facility] because of thinking about driving car into a concrete wall. Today, pt feels "good" she denied any sadness. She denied any worries. She slept well at night. She denied any suicidal thought, plan or wishes of . She denied any medication side effect. She reported having burning and urgency during urination. We discussed UA. She asked for culture. She was informed that the UA will be done first. Diagnostic impression: Major Depressive Disorder Generalized Anxiety Disorder (a combination of illness anxiety, agoraphobia, social phobia, and generalized anxiety symptoms. Mild neuro-cognitive disorder Current Medications Sig/Mirna Start time Last Medication Dose Route Stop Time Status Admin Albuterol Sulfate 2 PUF Q4P PRN 07/09 1600 AC 07/10 INH 2250 Aspirin Buffered 81 MG DAILY 07/09 1557 AC 07/14 PO 08 Atorvastatin Calcium 20 MG 1700 07/08 1700 AC 07/14 PO 1637 Cholecalciferol 2,000 IU DAILY 07/09 1558 AC 07/14 PO 0813 Clonazepam 1 MG AT BEDTIME 07/13 2100 AC 07/13 PO 07/20 2059 213 Clonazepam 0.5 MG Q6P PRN 07/12 1145 AC PO 07/18 1129 Clonazepam 1 MG AT BEDTIME PRN 07/08 2100 DC 07/12 PO 07/13 205 2101 Clotrimazole 1 HUMA AT BEDTIME 07/13 2100 AC 07/13 VAG 2138 Clotrimazole 1 HUMA BID 07/13 2100 AC 07/14 TOP 07/20 0900 1004 Duloxetine HCl 60 MG 07/13 0900 AC 07/14 PO 0813 Duloxetine HCl 30 MG 1700 07/12 1700 AC 07/14 PO 1637 Estradiol 0.0375 MG SuWe 07/11 1700 AC 07/11 TOP 1753 Famotidine 20 MG 0800,1700 07/13 1700 AC 07/14 PO 1637 Gabapentin 900 MG AT BEDTIME 07/13 2100 AC 07/13 PO 213 Gabapentin 900 MG Q4 HRS NEEDED PRN 07/11 1130 AC 07/12 PO 205 Hydroxyzine HCl 100 MG QPM 07/11 2100 AC 07/13 PO 213 Levothyroxine Sodium 0.137 MG DAILY AC 07/11 07 AC 07/14 PO 0715 Linaclotide 72 MCG DAILY 07/09 1645 AC 07/13 PO 09 Losartan Potassium 50 MG DAILY 07/09 900 AC 07/14 PO 08 Multivitamins 1 TAB DAILY 07/09 900 AC 07/14 Therapeutic PO 08 Naproxen 250 MG Q6P PRN 07/09 1600 AC 07/10 PO 1454 Progesterone 100 MG AT BEDTIME 07/08 2100 AC 07/13 PO 2210 Sertraline HCl 50 MG DAILY 07/13 900 AC 07/14 PO 812 Sumatriptan Succinate 100 MG DAILY NEEDED PRN 07/08 1630 AC PO Trazodone HCl 100 MG QPM 07/13 2100 AC 07/13 PO 213 Valacyclovir HCl 500 MG BID 07/13 900 AC 07/14 PO 07/17 2100 813 Vital Signs Date Time Temp Pulse Resp B/P B/P Pulse O2 O2 Flow FiO2 Mean Ox Delivery Rate 07/14 814 92 137/53 07/14 0731 97.3 92 137/53 07/13 1953 98.2 70 129/79 Mental status: She was AOx3. She was wearing make up. Well groomed and appropriately depressed. She was cooperative and engaged. HEr speech was normal. She was logical. Affect Euthymic and mood "good". She denied any suicidality or halluccination. Insight and Judgment is fair. She is doing better. Treatment plan update: - Continue Gabapentin 900 mg - Continue Klonopin at bedtime - Continue Trazodone to 100 mg at bedtime - Klonopin 0.5 mg every 6 hours as needed for anxiety. - Continue Cymbalta 60 mg AM + 30 mg p.m. (reduced from 60 mg BID 07/11) - Continue Sertraline 50 mg daily (increased 07/12) - hydroxyzine 100 mg at bedtime - Continue all other medications unchanged.
[2018-07-14 20:20] VITALS: BP 114/67
[2018-07-15 08:28] VITALS: BP 106/71
--- NOTE | 2018-07-15 13:07 | CP SOUTH PROGRESS NOTE PSYCH ---
Psych (Inpt) Progress Note Progress Note Jerri is a 53-year-old white female who was admitted to [facility] because of thinking about driving car into a concrete wall. Today, Pt again reports feeling "good" and denied any sadness or anxiety. she said that she only took 1/2 of Klonopin and tolerated it. She slept well night. She denied any suicidlaity or medication side effect. PER RN, Pt is did well. No suicidality. Slept well at night. Diagnostic impression: Major Depressive Disorder Generalized Anxiety Disorder (a combination of illness anxiety, agoraphobia, social phobia, and generalized anxiety symptoms. Mild neuro-cognitive disorder Current Medications Sig/Mirna Start time Last Medication Dose Route Stop Time Status Admin Albuterol Sulfate 2 PUF Q4P PRN 07/09 1600 AC 07/10 INH 2250 Aspirin Buffered 81 MG DAILY 07/09 1557 AC 07/15 PO 0842 Atorvastatin Calcium 20 MG 1700 07/08 1700 AC 07/14 PO 1637 Cholecalciferol 2,000 IU DAILY 07/09 1558 AC 07/15 PO 0842 Clonazepam 1 MG AT BEDTIME 07/13 2100 AC 07/13 PO 07/20 205 2138 Clonazepam 0.5 MG Q6P PRN 07/12 1145 AC 07/14 PO 07/18 1129 2112 Clotrimazole 1 HUMA AT BEDTIME 07/13 2100 AC 07/14 VAG 2111 Clotrimazole 1 HUMA BID 07/13 2100 AC 07/15 TOP 07/20 0900 0846 Duloxetine HCl 60 MG 0900 07/13 0900 AC 07/15 PO 0842 Duloxetine HCl 30 MG 1700 07/12 1700 AC 07/14 PO 1637 Estradiol 0.0375 MG SuWe 07/11 1700 AC 07/11 TOP 1753 Famotidine 20 MG 0800,1700 07/13 1700 AC 07/15 PO 0842 Gabapentin 900 MG AT BEDTIME 07/13 2100 AC 07/14 PO 2111 Gabapentin 900 MG Q4 HRS NEEDED PRN 07/11 1130 AC 07/12 PO 205 Hydroxyzine HCl 100 MG QPM 07/11 2100 AC 07/14 PO 2110 Levothyroxine Sodium 0.137 MG DAILY AC 07/11 0700 AC 07/15 PO 0637 Linaclotide 72 MCG DAILY 07/09 1645 AC 07/15 PO 0842 Losartan Potassium 50 MG DAILY 07/09 900 AC 07/15 PO 0842 Multivitamins 1 TAB DAILY 07/09 900 AC 07/15 Therapeutic PO 0842 Naproxen 250 MG Q6P PRN 07/09 1600 AC 07/10 PO 1454 Progesterone 100 MG AT BEDTIME 07/15 2100 AC PO Progesterone 100 MG AT BEDTIME 07/08 2100 DC 07/14 PO 211 Sertraline HCl 50 MG DAILY 07/13 900 AC 07/15 PO 0842 Sumatriptan Succinate 100 MG DAILY NEEDED PRN 07/08 1630 AC PO Trazodone HCl 100 MG QPM 07/13 2100 AC 07/14 PO 2110 Valacyclovir HCl 500 MG BID 07/13 900 AC 07/15 PO 07/17 Vital Signs Date Time Temp Pulse Resp B/P B/P Pulse O2 O2 Flow FiO2 Mean Ox Delivery Rate 07/15 842 61 106/71 07/15 828 96.6 61 106/71 07/14 2020 98.1 70 114/67 Mental status: She was AOx3. She was wearing make up. Well groomed and appropriately depressed. She was cooperative and engaged. She was logical. Affect euthymic and mood "good ". She denied any suicidality or halluccination. Insight and Judgment is fair. SShe is brighter and denied any mood or anxiety symptoms. Will continue medication. Treatment plan update: - Continue Gabapentin 900 mg - Continue Klonopin at bedtime (she took only half). She want to try to stop tonight. - Continue Trazodone to 100 mg at bedtime - Klonopin 0.5 mg every 6 hours as needed for anxiety. - Continue Cymbalta 60 mg AM + 30 mg p.m. (reduced from 60 mg BID 07/11) - Continue Sertraline 50 mg daily (increased 07/12) - hydroxyzine 100 mg at bedtime - Continue all other medications unchanged.
[2018-07-15 19:53] VITALS: BP 135/83
[2018-07-16 08:09] VITALS: BP 110/67
--- NOTE | 2018-07-16 08:46 | CP SOUTH PROGRESS NOTE PSYCH ---
Psych (Inpt) Progress Note Progress Note I reviewed Dr. Guillen's notes (covering for the weekend of 07/14 and 2017). The patient's progress, treatment plan, and aftercare plans were discussed in the treatment team meeting this morning. Team members included: LCSWs, RNs, OTR/ L, Activities Therapist, and Psychiatrist. 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 She was tearful during the interview, she endorsed thoughts of suicide over the weekend and today. This was much different than last week where she had at least 3 days in a stretch without thoughts of suicide up until Monday07/13/2018 She was alert and oriented to time, place, and person. She showed good eye contact, speech was normal, not pressured, not slurred. She was [id number] but had some circumstantial/overdetailed speech, perseveration, obsessiveness. There were no specific delusions during the interview. She denied hallucinations. She is having less difficulties with attention, concentration, and information processing Treatment Plan Update: I had in the long discussion with Jerri about her past psychopharmacological interventions and current options. We discussed the advantages and disadvantages of medications. She seems to understand the information presented. We agreed on the following pharmacological plan: 1) Increase sertraline to 100 mg daily 2) Reduce Cymbalta to 60 mg AM 3) Trazodone to 100 mg at bedtime 4) Klonopin 0.5 mg every 6 hours as needed for anxiety. 5) Gabapentin 900 mg as needed every 4 hours to a maximum of 3 doses /day for anxiety hydroxyzine 100 mg at bedtime Continue all other medications unchanged. 1) Reduce Gabapentin 900 mg as needed every 4 hours to a maximum of 3 doses /day for anxiety 2) Change PRN Klonopin at bedtime to regular schedule 3) Reduce Trazodone to 100 mg at bedtime 4) Klonopin 0.5 mg every 6 hours as needed for anxiety. Continue Cymbalta 60 mg AM + 30 mg p.m. (reduced from 60 mg BID yesterday) Continue Sertraline 50 mg daily (just started this morning) hydroxyzine 100 mg at bedtime Continue all other medications unchanged.
--- NOTE | 2018-07-16 10:33 | SOCIAL WORKER PROG NOTE PSYCH ---
Teresa Harry 07/16/18 1030: Social Work Progress Note Progress Note Psychiartic Community Health Worker Note This television writer cancelled the [facility] IOP intake appt that was scheduled for 07.16.18 at 1 :15pm per request of Jerri Howard LCSW as the pt is not discharging on 07.16.18 and discharge date is unknown at this time. Teresa Harry (Tish) Psychiatric [facility] Health Worker
--- NOTE | 2018-07-16 13:34 | IP INCIDENTAL NOTE PSYCH ---
Incidental Note Notation: add Bactrim DS 1 tab BID for UTI, see culture results in lab section
--- NOTE | 2018-07-16 15:21 | SOCIAL WORKER PROG NOTE PSYCH ---
Social Work Progress Note Progress Note 3:20pm This editorial writer left with clinical for Jim Angeles at [phone] ext [phone].
--- NOTE | 2018-07-16 16:27 | SOCIAL WORKER PROG NOTE PSYCH ---
Social Work Progress Note Progress Note This chief underwriter met with patient. She discussed feeling agitated due to "people kept talking to me" throughout the weekend. 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 Patient stated that she feels that both individual therapy and IOP is indicated, however , does not feel safe to discharge today. Patient was agreeable to this chief underwriter asking the insurance reviewer for a list of individual therapists in this area ( patient prefers a female therapist). She did reported decrease in SI, though still thoughts to drive her care into a concrete wall. Patient discussed working on the [employer] soother tool kit and shared it with this chief underwriter. Patient denied HI/hallucinations. During this chief underwriter's concurrent review, a request for a list of providers was also included.
[2018-07-16 20:07] VITALS: BP 109/71
[2018-07-17 07:45] VITALS: BP 120/68
--- NOTE | 2018-07-17 07:54 | CP SOUTH PROGRESS NOTE PSYCH ---
Psych (Inpt) Progress Note Progress Note The patient's progress, treatment plan, and aftercare plans were discussed in the treatment team meeting this morning. Team members included: LCSWs, RNs, OTR/ L, and Psychiatrist. Vital Signs: Date Time Temp Pulse Resp B/P B/P Pulse O2 FiO2 07/17 0813 97.2 82 18 120/68 07/17 0745 97.2 82 120/68 07/16 2007 97.8 61 109/71 Mental status: Jerri reported that she's ready to go home today. She denied thinking of suicide since our meeting yesterday. She reported that she is less angery, less irritable today, and less anxious. Today, she was not tearful during the interview, and denied wishing or thoughts of suicide. Shi was alert and oriented to time, place, and person. She showed good eye contact, speech was normal, not pressured, not slurred. She was coherent. There were no delusions during the interview. She denied hallucinations. She is having less difficulties with attention, concentration, and information processing Treatment Plan Update: Discharge home [facility]-I[facility]
[2018-07-17 08:13] VITALS: BP 120/68
--- NOTE | 2018-07-17 11:35 | SOCIAL WORKER PROG NOTE PSYCH ---
Teresa Harry 07/17/18 1132: Social Work Progress Note Progress Note Psychiatric Community Health Worker Note Per request of Jerri Howard LCSW, scheduled [facility] appt through Shaylee([phone]) for intake 07.18.18 at 11:30am. Teresa Harry (Tish) Psychiatric Community Health Worker
[2018-07-17] MEDS ORDERED: VALTREX500 M1 PO (11:38)
[2018-07-17] MEDS ORDERED: ZOLOFT100 M1 PO (11:38)
[2018-07-17] MEDS ORDERED: SULFAMETHOXAZO1 EAC1 PO (11:38)
[2018-07-17] MEDS ORDERED: TRAZODONE HCL100 M1 PO (11:38)
[2018-07-17] MEDS ORDERED: DULOXETINE HCL60 MG PO (11:38)
--- NOTE | 2018-07-17 11:39 | Patient Discharge Instructions ---
Psych Discharge Inst General Discharge Information Reason for Admission: increased depression and anxiety Psy Discharge Primary Diag+ Major Depressive Disorder Psy Discharge Secondary Diag+ Generalized Anxiety D.O. Summary Tests/Major Procedures Lab Ur Epithelial Cells MOD H 07/14/18 1343 Ur Leukocyte Esterase SMALL H 07/14/18 1343 Ur Microscopic SEDIMENT EXAMINED 07/14/18 1343 Ur Specific [place] 1.010 07/14/18 1343 Urine Bacteria FEW H 07/14/18 1343 Urine Bilirubin NEG 07/14/18 1343 Urine Clarity HAZY H 07/14/18 1343 Urine Color YEL 07/14/18 1343 Urine Glucose NEG MG/DL 07/14/18 1343 Urine Hemoglobin NEG 07/14/18 1343 Urine Ketones NEG 07/14/18 1343 Urine Mucus RARE 07/14/18 1343 Urine Nitrite NEG 07/14/18 1343 Urine Protein NEG MG/DL 07/14/18 1343 Urine Urobilinogen 0.2 EU/dl 07/14/18 1343 Urine WBC RARE /HPF 07/14/18 1343 Urine pH 6.0 07/14/18 1343 Studies Pending at DC: none Patient Instructions Contact Information Your Psychiatrist on [facility] was Greg DIAZ,Kory * If you are experiencing an emergency related to this hospitalization, please call [phone] to contact the treating psychiatrist or the psychiatrist-on- call. * To Request a copy of your medical records, please contact the Medical Records Department at [phone]. * To request results of studies pending at the time of discharge, please call [phone]. * Continue your Medications until directed to stop by your Healthcare provider. General Medication Information Please continue to take your new medications and your continued home medications , unless otherwise indicated on your discharge medication list, or unless directed by your MD or [employer] DY[employer] MANAGER ARCHITECT to stop them. Special Instructions Diet Regular Activity Normal - Tobacco Use Treatment Offered Post DC Medications Offered: Not Applicable Post DC Tobacco Treatment Plan: Not Applicable - EtOH/Drug Use D/O Treatment Offered Post DC Medications Offered: NA-No EtOH/Drug Use D/O Post DC EtOH/SubAbuse [place] Plan: NA-No EtOH/Drug Use D/O Advance Directives Does the Patient have Medical Advance Directives No/Refused further info Does Pt have Psychiatric Advance Directives? No/Refused further info Does Patient have a Designated Surrogate Decision Maker: No Information About Psychiatric Advance Directives Provided? Yes Discharge Plan Post Hospital Treatment Plan: [facility]
[2018-07-17] MEDS ORDERED: NEURONTIN300 M1 PO (12:20)
--- NOTE | 2018-07-17 12:44 | DISCHARGE SUMMARY REPORT-PSYCH ---
Visit Information Visit Dates/Diagnosis' Admission Date: 07/09/18 Discharge Date: 07/17/18 Reason for Admission: increased depression and anxiety Psy Discharge Primary Diag: Major Depressive Disorder Psy Discharge Secondary Diag: Generalized Anxiety D.O. Hospital Course Significant Lab Findings: Summary Tests/Major Procedures Lab Ur Epithelial Cells MOD H 07/14/18 1343 Ur Leukocyte Esterase SMALL H 07/14/18 1343 Ur Microscopic SEDIMENT EXAMINED 07/14/18 1343 Ur Specific [place] 1.010 07/14/18 1343 Urine Bacteria FEW H 07/14/18 1343 Urine Bilirubin NEG 07/14/18 1343 Urine Clarity HAZY H 07/14/18 1343 Urine Color YEL 07/14/18 1343 Urine Glucose NEG MG/DL 07/14/18 1343 Urine Hemoglobin NEG 07/14/18 1343 Urine Ketones NEG 07/14/18 1343 Urine Mucus RARE 07/14/18 1343 Urine Nitrite NEG 07/14/18 1343 Urine Protein NEG MG/DL 07/14/18 1343 Urine Urobilinogen 0.2 EU/dl 07/14/18 1343 Urine WBC RARE /HPF 07/14/18 1343 Urine pH 6.0 07/14/18 1343 Course Complications: Patient had a urinary tract infection and culture showed E. coli. Otherwise there were no complications while she was on the inpatient psychiatric unit Consultations: Source of Information: patient, friend Exam Limitations: unable to give history History of Present Illness: 53-year-old white female was sent to the emergency department by Dr. Chamorro for positive suicidal idea thoughts and increased depression recently, had a plan to drive her car into a concrete wall. The symptoms have been present for at least 3 months with increased depression decreased concentration and insomnia anhedonia and suicidal ideation for all those reasons she is admitted for evaluation and treatment. Allergies/Medications Allergies: Coded Allergies: nitrofurantoin (Intermediate, HIVES 07/08/18) esomeprazole (From NEXIUM) (BEEFY TONGUE 07/08/18) omeprazole (From PRILOSEC) (ADVERSE REACTION 07/08/18) ramipril (COUGH 07/08/18) Home Med list Albuterol Sulfate (Ventolin Hfa) 0.09 MG/Actuation CONG 1 INH INH DAILY ASTHMA (Reported) Aspirin (Aspirin*) 81 MG TAB.CHEW 1 TAB PO Q AFTERNOON HEART HEALTH (Reported ) Azithromycin (Zithromax Z-Jorje) 250 MG CAP 1 DP PO AD BRONCHTIIS 2 the first day followed by 1 for days 2-5 Benzonatate 100 MG SGL 1-2 CAP PO Q4 ASTHMA (Reported) Cholecalciferol (Vitamin D3) (Vitamin D) 2,000 UNIT CAPSULE 1 CAP PO DAILY SUPPLEMENT (Reported) Clonazepam 1 MG TABLET 1 TAB PO QPMP SLEEP (Reported) Cyclobenzaprine HCl 10 MG TABLET 1 TAB PO BID PRN MUSCLE RELAXOR DO NOT OPERATE MOTOR VEHICLES WITH THE MEDICATION Duloxetine HCl 60 MG CAPSULE.DR 1 CAP PO BID DEPRESSION (Reported) Famotidine 40 MG TABLET 0.5 TAB PO DAILY STOMACH (Reported) Hydroxyzine Pamoate 50 MG CAPSULE 2 CAP PO QHS SLEEP (Reported) Ketorolac Tromethamine 10 MG TABLET 1 TAB PO TID PRN PAIN RECEIVED IM IN ER Levothyroxine Sodium 137 MCG TABLET 1 TAB PO DAILY HYPOTHYROIDISM (Reported) Linaclotide (Linzess) 72 MCG CAPSULE 1 CAP PO DAILY BOWELS (Reported) Losartan Potassium 50 MG TABLET 1 TAB PO DAILY HYPERTENSION (Reported) Metoclopramide HCl (Reglan) 10 MG TABLET 1 TAB PO PRN PRN HEADACHE (Reported) 30 minutes before meals and bedtime Multivitamin (One Daily Multivitamin) 1 EACH TABLET 1 TAB PO DAILY SUPPLEMENT (Reported) Naproxen 500 MG TABLET 1 TAB PO PRN PRN HEADACHE (Reported) Nystatin 100,000 UNIT/GRAM POWDER 1 TOP PRN PRN RASH (Reported) Oxycodone HCl/Acetaminophen (Percocet 5-325 MG Tablet) 1 EACH TABLET 1-2 TAB PO Q6P PRN severe pain Oxycodone HCl/Acetaminophen (Percocet 5-325 MG Tablet) 5 MG-325 MG TABLET 1 TAB PO BID PRN PAIN DO NOT OPERATE MOTOR VEHICLES WITH MEDICATION Progesterone,Micronized (Progesterone) 100 MG CAPSULE 1 CAP PO QPM HORMONE REPLACEMENT (Reported) Robitussin AC (Guaifenesin-Codeine Syrup) 10 ML UDC 5 ML PO Q6 COUGH Rosuvastatin Calcium (Crestor) 5 MG TABLET 1 TAB PO Q AFTERNOON CHOLESTEROL ( Reported) Sumatriptan Succinate 100 MG TABLET 1 TAB PO AD HEADACHES (Reported) may repeat in 2 hours; do not exceed 200 mg in 24 hours Trazodone HCl 100 MG TABLET 2-3 TAB PO QPM SLEEP (Reported) Compliance With Home Meds: UNKNOWN Past History Travel History Traveled to [place] past 21 day No Medical History Neurological: migraine EENT: NONE Cardiovascular: hypertension Respiratory: NONE, CHRONIC BRONCHITIS Gastrointestinal: GALLBLADDER ABD HERNIA REPAIR (UMBILI Hepatic: NONE, FATTY LIVER Renal: NONE Musculoskeletal: NONE, BACK SURGERY LISTED Psychiatric: DEPRESSION, ANXIETY Endocrine: HYPOTHYROID Cancer(s): basal cell carcinoma TOUR CONSULTANT/Reproductive: fibroid Isolation History: Standard Surgical History Surgical History: cholecystectomy, hernia repair-ventral Past Family/Social History Psychosocial History Where do you live? 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 Exam & Diagnostic Data Last 24 Hrs of Vital Signs/I&O Vital Signs Date Time Temp Pulse Resp B/P B/P Pulse O2 O2 Flow FiO2 Mean Ox Delivery Rate 07/10 0801 87 128/67 07/10 0744 98.0 87 128/67 07/09 1952 98.6 66 118/75 07/09 1635 98.8 71 130/77 07/09 1547 98.0 62 18 112/62 95 Room Air Intake & Output 07/10 1600 07/10 0800 07/10 0000 Intake Total Output Total Balance Patient 220 lb Weight Physical Exam General Appearance Alert, Oriented X3, Cooperative, No Acute Distress Skin No Rashes, No Breakdown HEENT Atraumatic, PERRLA, EOMI Neck Supple, No JVD, No thryomegaly, +2 Carotid Pulse wo Bruit Lymphatic Axillary nl, Cervical nl Cardiovascular Regular Rate, No Murmurs Lungs Clear to Auscultation, Normal Air Movement Abdomen Soft, No Tenderness, No Hepatospenomegaly Neurological Exam Findings: Normal Gait, Normal Speech, Strength at 5/5 X4 Ext, Normal Tone, Sensation Intact, Cranial Nerves 3-12 NL, Reflexes 2+ Cranial Nerves II through XII: intact. Extremities No Cyanosis, No Edema, Normal Pulses Vascular Normal Pulses, Pulses Symmetrical Last 24 Hrs of Labs/Renaldo: Laboratory Tests 07/08/18 1357: Serum Alcohol < 10.0 07/08/18 1357: Anion Gap 9, Estimated GFR > 60, BUN/Creatinine Ratio 15.6, Glucose 82, Calcium 9.1, Total Bilirubin 0.2, AST 28, ALT 45, Alkaline Phosphatase 70, Total Protein 7.3, Albumin 4.6, Globulin 2.7, Albumin/Globulin Ratio 1.7, CBC w Diff NO MAN DIFF REQ, RBC 4.78, MCV 84.7, MCH 28.2, MCHC 33.3, RDW 13.7, MPV 7.8, Gran % 61.7, Lymphocytes % 28.9, Monocytes % 6.4, Eosinophils % 2.7, Basophils % 0.3, Absolute Granulocytes 5.9, Absolute Lymphocytes 2.7, Absolute Monocytes 0.6, Absolute Eosinophils 0.3, Absolute Basophils 0, Urine Opiates Screen < 100, Methadone Screen 72, Barbiturate Screen < 60, Ur Phencyclidine Scrn < 6.00, Amphetamines Screen 127, U Benzodiazepines Scrn < 85, Urine Cocaine Screen < 50, Urine Cannabis Screen > 80.00 H Assessment/Plan As Ranked By This Provider Problem List: 1. Major depression Miscellaneous Miscellaneous Documentation Attending Case Discussed With: Jerri Velazqeuz MD Primary Care Physician: Brittany Paez MD, I. Patient sees these Specialists psych. Level of Patient Care: [facility] Consults Needed: Consulting Specialty: Psychiatry Consulting Physician: dr. Duarte Reason for Consult: SI depression. Attending MD Review Statement Attending Statement Attending Statement: examined this patient DICTATED BY: Yonas Millan MD DATE/TIME DICTATED:07/10/181257 GREENS CUTTER:POLO DATE/TIME TRANSCRIBED:07/10/181257 REPORT NUMBER:[id number] CONFIDENTIAL, DO NOT COPY WITHOUT APPROPRIATE AUTHORIZATION. <Electronically signed by Yonas Millan MD> 07/10/18 1312 Allergies: Coded Allergies: nitrofurantoin (Intermediate, HIVES 07/08/18) esomeprazole (From NEXIUM) (BEEFY TONGUE 07/08/18) omeprazole (From PRILOSEC) (ADVERSE REACTION 07/08/18) ramipril (COUGH 07/08/18) Hospital Course/TX Response: 07/10/2018: Dr. Quezada's Initial Impression and Plan: MDD most likely with hormonal dysregulation 2/2 to perimenopause P/ Continue home meds Therapy surrounding idetifying and asserting herself surrounding her own needs milieu support group participation needs psych on discharge and psychotherapist for trauma - Include all active medical diagnosis that require tx DSM 5 Diagnosis(es): MDD - Initial Tx Plan for Active Psych & Medical Conditions Treatment Plan: P/ Continue home meds Therapy surrounding idetifying and asserting herself surrounding her own needs milieu support group participation needs psych on discharge and psychotherapist for trauma 07/11/2018 Add as needed's of Klonopin 1 mg every 6 hours as needed for anxiety Increase as needed doses of gabapentin to 900 mg as needed every 4 hours for anxiety to be used first and then if that does not work me use the as needed Klonopin (maximum 4 doses in 24 hours) Increase hydroxyzine back to 100 mg at bedtime Continue Cymbalta as it is: 60 mg twice daily Continue all other medications unchanged. 07/12/2018--07/16/2018: The patient was doing well until the weekend of July 14 and when she experienced some worsening of her irritability and anger and depression. On 07/14 and 07/15/2018, the covering/psychiatrist, Dr. Guillen, recommended the following - Continue Klonopin at bedtime - Continue Trazodone to 100 mg at bedtime - Klonopin 0.5 mg every 6 hours as needed for anxiety. - Continue Cymbalta 60 mg AM + 30 mg p.m. (reduced from 60 mg BID 07/11) - Continue Sertraline 50 mg daily (increased 07/12) - hydroxyzine 100 mg at bedtime - Continue all other medications unchanged. She reported that she had thoughts of suicide over the weekend and again on Monday the 2017. The patient tolerated the cross titration of Cymbalta with Zoloft without any major side effects. On 07/16/2018 I reevaluated the patient after the weekend and we agreed on the following plan: Treatment Plan Update: I had in the long discussion with Jerri about her past psychopharmacological interventions and current options. We discussed the advantages and disadvantages of medications. She seems to understand the information presented. We agreed on the following pharmacological plan: 1) Increase sertraline to 100 mg daily 2) Reduce Cymbalta to 60 mg AM 3) add Bactrim double strength 1 tablet twice daily for a urinary tract infection that showed a culture of E. coli sensitive to the Bactrim Trazodone 100 mg at bedtime Klonopin 0.5 mg every 6 hours as needed for anxiety. Gabapentin 900 mg as needed every 4 hours to a maximum of 3 doses /day for anxiety hydroxyzine 100 mg at bedtime Continue all other medications unchanged. 07/17/2018: Mental status: Jerri reported that she's ready to go home today. She denied thinking of suicide since our meeting yesterday. She reported that she is less angery, less irritable today, and less anxious. Today, she was not tearful during the interview, and denied wishing or thoughts of suicide. Shi was alert and oriented to time, place, and person. She showed good eye contact, speech was normal, not pressured, not slurred. She was coherent. There were no delusions during the interview. She denied hallucinations. She is having less difficulties with attention, concentration, and information processing Treatment Plan Update: Discharge home GH-IOP Discharge HBIPS - Tobacco Use Treatment Offered Post DC Medications Offered: Not Applicable Post DC Tobacco Treatment Plan: Not Applicable - EtOH/Drug Use D/O Treatment Offered Post DC Medications Offered: NA-No EtOH/Drug Use D/O Post DC EtOH/SubAbuse TX Plan: NA-No EtOH/Drug Use D/O Metabolic Screening - Screen if on a Neuroleptic Medication - Metabolic screening should include: - Blood Pressure, BMI, Glucose or Hgb A1c, & a - Lipid profile from within the past 365 days. Metabolic Screening Not Applicable, patient not on a neuroleptic. Discharge Instructions General Discharge Information Multiple Neuroleptics: Not Applicable Discharge Diet Regular Discharge Activity Normal DC Disposition: Home Referrals Ordered Referrals INTENSIVE OUTPT PSYCHIATRY 07/18/[address] [place] [address] [facility] Intensive Outpatient (IOP) [address], [place] [phone] IOP Intake: 07/18/18, at 11:30am Prescriptions Stop taking the following medications: Ketorolac Tromethamine (Ketorolac Tromethamine) 10 MG TABLET ORAL THREE TIMES DAILY as needed for PAIN Qty = 15 Cyclobenzaprine HCl (Cyclobenzaprine HCl) 10 MG TABLET ORAL TWICE DAILY as needed for MUSCLE RELAXOR Qty = 14 Duloxetine HCl (Duloxetine HCl) 60 MG CAPSULE. ORAL TWICE DAILY Qty = 60 Trazodone HCl (Trazodone HCl) 100 MG TABLET ORAL Every night Qty = 90 Nystatin (Nystatin) 100,000 UNIT/GRAM POWDER On the skin NEEDED as needed for RASH Qty = 60 Continue taking these medications: Levothyroxine Sodium (Levothyroxine Sodium) 137 MCG TABLET 1 Tablet ORAL DAILY Qty = 90 Comments: Last Taken:07/17/18 Time:7:00AM Losartan Potassium (Losartan Potassium) 50 MG TABLET 1 Tablet ORAL DAILY Qty = 30 Comments: Last Taken: 07/17/18 Time:8:00AM Progesterone,Micronized (Progesterone) 100 MG CAPSULE 1 Capsule ORAL Every night Qty = 90 Comments: WAS GIVEN PROGESTERONE (PROMETRIUM) ON 07/16/18 AT 9PM FOLLOW DISCHARGE INSTRUCTIONS Rosuvastatin Calcium (Crestor) 5 MG TABLET 1 Tablet ORAL Q AFTERNOON Qty = 90 Comments: WAS LAST GIVEN LIPITOR 20MG ON 07/16/18 AT 6PM IN HOSPITAL HOWEVER FOLLOW DISCHARGE INSTRUCTIONS Hydroxyzine Pamoate (Hydroxyzine Pamoate) 50 MG CAPSULE 2 Capsule ORAL TAKE AT BEDTIME Qty = 60 Comments: Last Taken:07/16/18 Time:9;00PM Clonazepam (Clonazepam) 1 MG TABLET 1 Tablet ORAL Every night as needed Qty = 30 Comments: Last Taken:07/16/18 Time:9:00PM Famotidine (Famotidine) 40 MG TABLET 0.5 Tablet ORAL DAILY Qty = 60 Comments: Last Taken:07/17/18 Time:8:00AM Naproxen (Naproxen) 500 MG TABLET 1 Tablet ORAL as needed for HEADACHE Qty = 9 Comments: WAS GIVEN 250MG ON 07/10/18 AT 3:00PM. DOSE CHANGED FOLLOW CURRENT DISCHARGE ORDERS Sumatriptan Succinate (Sumatriptan Succinate) 100 MG TABLET 1 Tablet ORAL As Directed Qty = 9 Instructions: may repeat in 2 hours; do not exceed 200 mg in 24 hours Comments: WASNT GIVEN DURING HOSPITAL STAY Aspirin (Aspirin*) 81 MG TAB.CHEW 1 Tablet ORAL Comments: Last Taken:07/17/18 Time:8:00AM Linaclotide (Linzess) 72 MCG CAPSULE 1 Capsule ORAL DAILY Comments: Last Taken:07/17/18 Time:8:00AM Multivitamin (One Daily Multivitamin) 1 EACH TABLET 1 Tablet ORAL DAILY Comments: Last Taken:07/17/18 Time:8:00AM Cholecalciferol (Vitamin D3) (Vitamin D) 2,000 UNIT CAPSULE 1 Capsule ORAL DAILY Comments: Last Taken:07/17/18 Time:8:00AM Start taking the following new medications: Sulfamethoxazole/Trimethoprim (Sulfamethoxazole-Tmp Ds Tablet) 800 MG-160 MG TABLET 1 Tablet ORAL TWICE DAILY Qty = 12 No Refills Comments: Last Taken:07/17/18 Time:8:00AM Valacyclovir Hydrochloride (Valtrex) 500 MG TABLET 500 Milligram ORAL TWICE DAILY Qty = 30 No Refills Comments: Last Taken:07/17/18 Time:8:00AM Duloxetine HCl (Duloxetine HCl) 60 MG CAPSULE.DR 60 Milligram ORAL 0900 Qty = 14 No Refills Comments: Last Taken:07/17/18 Time:8:00AM Sertraline HCl (Zoloft) 100 MG TABLET 100 Milligram ORAL DAILY Qty = 14 No Refills Comments: Last Taken:07/17/18 Time:8:00AM Trazodone HCl (Trazodone HCl) 100 MG TABLET 100 Milligram ORAL Every night Qty = 14 No Refills Comments: Last Taken:07/16/18 Time:9:00PM Albuterol Sulfate (Ventolin Hfa) 90 MCG HFA.AER.AD 2 Puff Inhale through mouth EVERY 4 HOURS NEEDED as needed for SHORTNESS OF BREATH Qty = 1 No Refills Comments: Last Taken:07/10/18 Time:11:00PM Gabapentin (Neurontin) 300 MG CAPSULE 3 Capsule ORAL SEE INSTRUCTIONS Qty = 120 No Refills Instructions: 3 capsules every 6 hours as needed for anxiety or insomnia Comments: WAS LAST GIVEN 900MG ON 07/16/18 AT 9PM HOWEVER FOLLOW DISCAHRGE INSTRUCTIONS Studies Pending at Discharge none Copies To: Jackie Ceballos APRN
[2018-07-17] MEDS ORDERED: VENTOLIN HFA18 GM INH (13:29)
--- NOTE | 2018-07-17 16:54 | SOCIAL WORKER PROG NOTE PSYCH ---
Teresa Harry 07/17/18 1653: Social Work Progress Note Faxed Referral(s) Referred To: -[facility] Transition of Care Documents sent: Health Summary Faxed to: -[facility] Fax #: [phone] Faxed by: Linda Date faxed: 07/17/18 Time Faxed: [phone] Comment: Teresa Harry (Tish)-Psychiatric Community Health Worker
--- NOTE | 2018-07-17 16:56 | SOCIAL WORKER PROG NOTE PSYCH ---
Social Work Progress Note Progress Note This chief writer met with patient. She stated that she discussed discharge with Dr. Garza today and feels safe to discharge today. She accepted a IOP intake for tomorrow, 07/18/18, at 11:30am. She requested a list of individual therapists, which this chief writer had been provided by the patient's insurance company. This chief writer offered to make a referral and patient stated that she preferred to call from home. Patient denied SI/HI/Hallucinations and denied having any thoughts to harm herself. She identified a safety plan in which she would "come back to the hospital." She also accepted the crisis numbers and warm line numbers upon discharge. Patient denied having any access to firearms. We attempted to reach her friend Mj by phone to discuss her discharge plans. Mj's number: [phone]. A vm was left. Patient stated that her friend, Selvin Arteaga, would be providing transportation home and she was agreeable to meeting with him and this chief writer prior to discharge. Upon Selvin Arteaga's arrival, this chief writer and the patient met with him. The discharge plan and safety plan were reviewed. He denied having any safety concerns about discharge today. Selvin informed us that the person the patient is living with has begun drinking again. He offered the patient to stay with him rather than returning home at this time. Patient agreed. Selvin lives in [place] and the patient has transportation to attend the IOP intake tomorrow. Patient stated that she feels safe to discharge today. She stated that she will consider moving should the use in the home cotninue. Patient was informed that crisis clinicians will contact her by phone in the next few days to check in. She was agreeable to this. This chief writer informed AME Gómez, [facility] of this and she will discuss it further during the intake tomorrow.
== END 2018-07-17 16:31 | DRG 881 ==
LOC: ERH 13:11 → CP SOUTH 07-09 12:10 → ERHI 07-09 12:10 → ENTRNSPT 07-09 15:43 → EDTRNSPT 07-09 15:44 → EDTRNSPTSTS 07-09 15:44 → CMPTRNSPT 07-09 16:03 → CP SOUTH 07-09 16:21
PROVIDERS: Emergency Medicine
DX: F32.9 Major depressive disorder, single episode, unspecified (principal); F41.9 Anxiety disorder, unspecified
CPT/HCPCS: 74176; 80307; 81001; 87086; 87147; G0463; G0480; J3490